=== PATIENT | female | born 1970 | race Caucasian/White ===

== ENCOUNTER 2017-03-27 08:08 | Emergency (ER) | payer BC ==
[~2017-03-27] VITALS: Ht 160 cm; Wt 66.9 kg
[~2017-03-27 08:08] MED LIST: ASPEC81 PO; ATOV1TAB PO; CETI10TA10 PO; ENOX60IN SQ; [UNRECOGNIZED DRUG - CODE] SQ
[2017-03-27 08:11] VITALS: TEMP 36.9; Ht 160 cm; Wt 66.9 kg
[2017-03-27] MEDS ORDERED: ASPI-232 PO (08:23)
[2017-03-27] MEDS ORDERED: SODIUM CHLORIDE 0.9% 1000ML 1,000 ML IV STA (08:23)
[2017-03-27] MEDS ORDERED: ENOX40IN SQ (08:23)
[2017-03-27] MEDS ORDERED: [UNRECOGNIZED DRUG - CODE] SQ (08:23)
[2017-03-27] MEDS ORDERED: OPTIRAY 320 IV PRN (08:30)
[2017-03-27 08:54] LABS: BASO % 0.5 %; BASO ABS # 0.03 K/uL (0-0.2); COMPLETE YES; EOS % 1.1 %; HEMATOCRIT 39.4 % (37-47); IG% 0.4 %; LYMPH % 38.4 %; LYMPH ABS # 2.17 K/uL (1.2-3.4); MEAN CELL VOLUME 88.7 fL (80-100); MEAN CORPUSCULAR HGB CONC 33.8 g/dl (32-36); MEAN PLATELET VOLUME 9.6 fL (7.4-10.4); MONO % 16.5 %; NEUT % 43.1 %; PLATELET COUNT 407 K/uL (130-400); RED BLOOD COUNT 4.44 M/uL (4.2-5.4); WHITE BLOOD COUNT 5.65 K/uL (4.8-10.8)
[2017-03-27 09:01] LABS: ISTAT CREATININE 0.7 mg/dl (0.6-1.3); ISTAT HEMOGLOBIN 14.3 g/dl (12.0-16.0); ISTAT IONIZED CALCIUM 1.14 mmol/l (1.12-1.32)
[2017-03-27 09:11] LABS: BLOOD UREA NITROGEN 13 mg/dl (7-18); BUN/CREATININE RATIO 16.9 (10-20); CALCIUM 8.6 mg/dl (8.5-10.1); CARBON DIOXIDE 25 mmol/L (21-32); CHLORIDE 107 mmol/L (98-107); CREATININE 0.74 mg/dl (0.60-1.20); GLUCOSE 80 mg/dl (70-99); POTASSIUM 3.9 mmol/L (3.5-5.1); SODIUM 138 mmol/L (136-145)
[2017-03-27 09:12] LABS: INR 0.9 (0.9-1.1); PROTHROMBIN TIME (PATIENT) 10.1 SECONDS (9.0-12.0)
[2017-03-27 09:14] LABS: ALKALINE PHOSPHATASE 57 U/L (45-117); ALT/SGPT 26 U/L (12-78); AST/SGOT 18 U/L (15-37)
--- NOTE | 2017-03-27 09:57 | DIAGNOSTIC IMAGING REPORT ---
CT ABD/PELVIS IV CONTRAST ONLY CLINICAL HISTORY: Left lower quadrant abdominal pain. History of prior splenectomy. History of hemorrhagic left ovarian cyst. COMPARISON STUDY: December 2012 TECHNIQUE: Following the IV administration of 93 mL of Optiray-320, CT scan of the abdomen and pelvis was performed from the lung bases to the proximal femurs. Images are reviewed in the axial, sagittal, and coronal planes. IV contrast was administered without complication. CT DOSE: 322.15 mGy.cm FINDINGS: Lower chest: The heart is normal in size and configuration, without pericardial effusion. The lung bases and pleural spaces are clear. Liver: There is stable left lobe atrophy. There is a 4 mm hypodensity within the right lobe of the liver, unchanged the prior study and likely representing a cyst. There are 2 stable subcentimeter left lobe hypodensities, also likely representing cysts. The largest measures 9 mm. Gallbladder: Unremarkable. Spleen: Surgically absent Pancreas: Unremarkable. Adrenal glands: Unremarkable. Kidneys: There is symmetric renal cortical enhancement. The kidneys are normal in size without hydronephrosis. Bowel: There are no transition zone to indicate bowel obstruction. There is no acute diverticulitis. There is no evidence of acute appendicitis. There is mild fecal retention. Peritoneum: No free air is visualized. There is trace free pelvic fluid likely physiologic. Vasculature: The abdominal aorta is normal in course and caliber. Adenopathy: None. Pelvic viscera: The uterus appears surgically absent. There is mild enlargement of the left ovarian complex ((5 cm) which contains multiple cysts/follicles. Skeletal structures: No destructive osseous lesions are seen. IMPRESSION: 1. No evidence of bowel obstruction. No evidence of free air 2. Mild fecal retention 3. No evidence of acute diverticulitis 4. Surgically absent spleen and uterus 5. Stable left hepatic lobe atrophy 6. Enlarged left ovarian complex measuring 5 cm. This contains multiple cysts/follicles. Electronically signed by: Vitor Nelson M.D. 03/27/2017 9:56 AM Dictated Date/Time: 03/27/2017 9:45 AM
[2017-03-27 10:17] LABS: URINE APPEARANCE CLEAR (CLEAR); URINE BILIRUBIN NEG (NEG); URINE COLOR YELLOW; URINE NITRITE NEG (NEG); URINE PH 6.5 (4.5-7.5); URINE SPECIFIC GRAVITY 1.013 (1.000-1.030); UROBILINOGEN NEG (NEG); ZZUR CULT IF INDIC CLEAN CATCH NO
[2017-03-27 10:25] LABS: MANUAL MICROSCOPIC REQUIRED? NO; REVIEW REQ? NO
--- NOTE | 2017-03-27 13:28 | DIAGNOSTIC IMAGING REPORT ---
EXAMINATION: PELVIC ULTRASOUND CLINICAL HISTORY: Left lower quadrant abdominal pain. Left ovarian cyst. COMPARISON STUDY: CT scan dated 03/27/2017, ultrasound dated 05/01/2014 FINDINGS: The uterus is surgically absent. The right ovary is surgically absent. The left ovary measured 50 x 19 x 35 mm. There are multiple complex left ovarian cysts, several which are likely hemorrhagic. The largest measures 17 mm.. There is no ultrasonographic evidence of ovarian torsion. It should be noted that ovarian torsion can be present with normal Doppler ultrasonographic findings. There was no evidence of pathologic free pelvic fluid. IMPRESSION: 1. Mildly enlarged left ovary containing multiple complex cysts, several which are likely hemorrhagic. 2. Surgically absent uterus and right ovary. Electronically signed by: Vitor Nelson M.D. 03/27/2017 1:26 PM Dictated Date/Time: 03/27/2017 1:24 PM
[2017-03-27] MEDS ORDERED: OXYC1TAB3 PO (14:09)
[2017-03-27 14:30] VITALS: BP 122/70; PULSE 72; O2SAT 98
--- NOTE | 2017-03-27 15:21 | EMERGENCY ROOM VISIT NOTE ---
History Report prepared by Andrey: Jean Marie Rico Under the Supervision of: Dr. Sridhar Peterson M.D. First contact with patient: 08:20 Chief Complaint: ABDOMINAL PAIN Stated Complaint: PAIN IN LOWER L SIDE OF ABDOMEN Nursing Triage Summary: Pt states she began having LLQ pain this am. Hx of bleeding ovarian cysts. Pt denies n/v/d and urinary symptoms. Hx: pt on blood thinner, spleen removed. History of Present Illness The patient is a 46 year old female who presents to the Emergency Room with complaints of intermittent left lower abdominal pain that started this morning. She rates her pain as a 6.5/10 in severity and reports that the pain radiates to her lower back, which she describes as an aching pain . She reports that she has a history of ovarian cysts and states that her current symptoms feel similar to her previous cysts. The patient reports that she had a history of bleeding cysts but denies any rupture. She states that she has a history of polycythemia, gastric varices, splenectomy, uterine cancer, and a hysterectomy. The patient states that during her hysterectomy, the surgeons left her left ovary since she cannot be put on hormone replacement therapy due to her extensive medical history. She reports that she currently takes Lovenox every 12 hours, which she has been taking for the last 5 years. The patient reports that her PCP is Dr. Mai of [facility]. The patient denies LOC, headache, fevers, chills, diaphoresis, visual changes, neck pain, chest pain, breathing difficulties, nausea, vomiting, melena, hematochezia, urinary symptoms, numbness , weakness, lymphadenopathy, rash, or other complaints. Source of History: patient Onset: this morning Position: abdomen (LLQ) Symptom Intensity: 6.5/10 Timing: intermittent Associated Symptoms: + back pain Review of Systems See HPI for pertinent positives and negatives. A total of ten systems were reviewed and were otherwise negative. Past Medical & Surgical Medical Problems: (1) Bleeding gastric varices (2) Fever (3) Polycythemia vera (4) Splenic vein thrombosis (5) Thrombocythemia Surgical Problems: (1) H/O splenectomy (2) H/O: hysterectomy Family History No significant family history Social History Smoking Status: Never Smoker Alcohol Use: none Drug Use: none Marital Status: Occupation Status: employed Current/Historical Medications Scheduled Aspirin (Aspir-81), 1 TAB PO DAILY Atovaquone-Proguanil Hcl (Atovaquone/Proguanil Hcl), 1 TAB PO DAILY Cetirizine Hcl (Zyrtec), 10 MG PO DAILY Enoxaparin (Lovenox), 0.4 ML SQ Q12 Peginterferon Dimitrios-2A (Pegasys), 90 MCG SQ WK Scheduled PRN Oxycodone Ir (Roxicodone Ir), 1-2 TAB PO Q4H PRN for Pain Allergies Coded Allergies: Amoxicillin (Verified Allergy, Intermediate, RASH, 03/27/17) Succinylcholine (Verified Allergy, Unknown, Family member hx of rxn, ) SHE WAS TESTED AND TOLD NOT TO TAKE IT SINCE HER SISTER QUIT BREATHING WHEN GIVEN IT. Hydroxyurea (Verified Adverse Reaction, Mild, GI SYMPTOMS, 03/27/17) felt lifeless Physical Exam Vital Signs Date Time Temp Pulse Resp B/P (MAP) Pulse Ox O2 Delivery O2 Flow Rate FiO2 03/27/17 14:30 72 18 122/70 98 03/27/17 11:50 77 16 104/74 97 03/27/17 11:48 86 18 03/27/17 11:43 79 13 03/27/17 11:38 74 16 03/27/17 11:33 76 13 03/27/17 11:28 76 10 03/27/17 11:23 84 13 03/27/17 11:18 82 12 03/27/17 11:13 82 19 03/27/17 11:08 83 20 03/27/17 11:03 79 17 03/27/17 10:58 81 13 03/27/17 10:43 89 21 03/27/17 10:38 84 22 03/27/17 10:33 73 14 03/27/17 10:28 86 18 03/27/17 10:23 82 13 03/27/17 10:18 78 14 03/27/17 10:13 80 18 03/27/17 10:08 70 13 03/27/17 10:05 75 03/27/17 10:03 79 15 03/27/17 09:58 79 14 03/27/17 09:48 109/68 03/27/17 09:48 75 14 109/68 99 Room Air 03/27/17 08:11 36.9 88 16 120/74 100 Room Air Physical Exam GENERAL: Awake, alert, well-appearing, in no distress HENT: Normocephalic, atraumatic. Oropharynx unremarkable. EYES: Normal conjunctiva. Sclera non-icteric. NECK: Supple. No nuchal rigidity. FROM. No JVD. RESPIRATORY: Clear to auscultation. CARDIAC: Regular rate, normal rhythm. Extremities warm and well perfused. Pulses equal. ABDOMEN: Soft, non-distended. Left lower quadrant tenderness to palpation. No rebound or guarding. No masses. RECTAL: Deferred. MUSCULOSKELETAL: Chest examination reveals no tenderness. The back is symmetrical on inspection without obvious abnormality. There is no CVA tenderness to palpation. No joint edema. LOWER EXTREMITIES: Calves are equal size bilaterally and non-tender. No edema. No discoloration. NEURO: Normal sensorium. No sensory or motor deficits noted. SKIN: No rash or jaundice noted. Medical Decision & Procedures ER Provider Diagnostic Interpretation: Radiology results as stated below per my review and radiologist interpretation: CT ABD/PELVIS IV CONTRAST ONLY CLINICAL HISTORY: Left lower quadrant abdominal pain. History of prior splenectomy. History of hemorrhagic left ovarian cyst. COMPARISON STUDY: December 2012 TECHNIQUE: Following the IV administration of 93 mL of Optiray-320, CT scan of the abdomen and pelvis was performed from the lung bases to the proximal femurs. Images are reviewed in the axial, sagittal, and coronal planes. IV contrast was administered without complication. CT DOSE: 322.15 mGy.cm FINDINGS: Lower chest: The heart is normal in size and configuration, without pericardial effusion. The lung bases and pleural spaces are clear. Liver: There is stable left lobe atrophy. There is a 4 mm hypodensity within the right lobe of the liver, unchanged the prior study and likely representing a cyst. There are 2 stable subcentimeter left lobe hypodensities, also likely representing cysts. The largest measures 9 mm. Gallbladder: Unremarkable. Spleen: Surgically absent Pancreas: Unremarkable. Adrenal glands: Unremarkable. Kidneys: There is symmetric renal cortical enhancement. The kidneys are normal in size without hydronephrosis. Bowel: There are no transition zone to indicate bowel obstruction. There is no acute diverticulitis. There is no evidence of acute appendicitis. There is mild fecal retention. Peritoneum: No free air is visualized. There is trace free pelvic fluid likely physiologic. Vasculature: The abdominal aorta is normal in course and caliber. Adenopathy: None. Pelvic viscera: The uterus appears surgically absent. There is mild enlargement of the left ovarian complex ((5 cm) which contains multiple cysts/follicles. Skeletal structures: No destructive osseous lesions are seen. IMPRESSION: 1. No evidence of bowel obstruction. No evidence of free air 2. Mild fecal retention 3. No evidence of acute diverticulitis 4. Surgically absent spleen and uterus 5. Stable left hepatic lobe atrophy 6. Enlarged left ovarian complex measuring 5 cm. This contains multiple cysts/follicles. Electronically signed by: Vitor Nelson M.D. 03/27/2017 9:56 AM Dictated Date/Time: 03/27/2017 9:45 AM EXAMINATION: PELVIC ULTRASOUND CLINICAL HISTORY: Left lower quadrant abdominal pain. Left ovarian cyst. COMPARISON STUDY: CT scan dated 03/27/2017, ultrasound dated 05/01/2014 FINDINGS: The uterus is surgically absent. The right ovary is surgically absent. The left ovary measured 50 x 19 x 35 mm. There are multiple complex left ovarian cysts, several which are likely hemorrhagic. The largest measures 17 mm.. There is no ultrasonographic evidence of ovarian torsion. It should be noted that ovarian torsion can be present with normal Doppler ultrasonographic findings. There was no evidence of pathologic free pelvic fluid. IMPRESSION: 1. Mildly enlarged left ovary containing multiple complex cysts, several which are likely hemorrhagic. 2. Surgically absent uterus and right ovary. Electronically signed by: Vitor Nelson M.D. 03/27/2017 1:26 PM Dictated Date/Time: 03/27/2017 1:24 PM Laboratory Results 03/27/17 08:35 Red Blood Count 4.44, Mean Corpuscular Volume 88.7, Mean Corpuscular Hemoglobin 30.0, Mean Corpuscular Hemoglobin Concent 33.8, Mean Platelet Volume 9.6, Neutrophils (%) (Auto) 43.1, Lymphocytes (%) (Auto) 38.4, Monocytes (%) (Auto) 16.5, Eosinophils (%) (Auto) 1.1, Basophils (%) (Auto) 0.5, Neutrophils # (Auto ) 2.44, Lymphocytes # (Auto) 2.17, Monocytes # (Auto) 0.93, Eosinophils # (Auto ) 0.06, Basophils # (Auto) 0.03 03/27/17 08:35 Test 03/27/17 08:35 03/27/17 08:42 03/27/17 09:30 White Blood Count 5.65 K/uL (4.8-10.8) Red Blood Count 4.44 M/uL (4.2-5.4) Hemoglobin 13.3 g/dL (12.0-16.0) Hematocrit 39.4 % (37-47) Mean Corpuscular Volume 88.7 fL (80-100) Mean Corpuscular Hemoglobin 30.0 pg (25-34) Mean Corpuscular Hemoglobin Concent 33.8 g/dl (32-36) Platelet Count 407 K/uL (130-400) Mean Platelet Volume 9.6 fL (7.4-10.4) Neutrophils (%) (Auto) 43.1 % Lymphocytes (%) (Auto) 38.4 % Monocytes (%) (Auto) 16.5 % Eosinophils (%) (Auto) 1.1 % Basophils (%) (Auto) 0.5 % Neutrophils # (Auto) 2.44 K/uL (1.4-6.5) Lymphocytes # (Auto) 2.17 K/uL (1.2-3.4) Monocytes # (Auto) 0.93 K/uL (0.11-0.59) Eosinophils # (Auto) 0.06 K/uL (0-0.5) Basophils # (Auto) 0.03 K/uL (0-0.2) RDW Standard Deviation 46.5 fL (36.4-46.3) RDW Coefficient of Variation 14.4 % (11.5-14.5) Immature Granulocyte % (Auto) 0.4 % Immature Granulocyte # (Auto) 0.02 K/uL (0.00-0.02) Prothrombin Time 10.1 SECONDS (9.0-12.0) Prothromb Time International Ratio 0.9 (0.9-1.1) Activated Partial Thromboplast Time 26.3 SECONDS (21.0-31.0) Partial Thromboplastin Ratio 1.0 Est Creatinine Clear Calc Drug Dose 89.1 ml/min Estimated GFR () 114.2 Estimated GFR (Non- 98.5 BUN/Creatinine Ratio 16.9 (10-20) Calcium Level 8.6 mg/dl (8.5-10.1) Total Bilirubin 0.5 mg/dl (0.2-1) Direct Bilirubin < 0.1 mg/dl (0-0.2) Aspartate Amino Transf (AST/SGOT) 18 U/L (15-37) Alanine Aminotransferase (ALT/SGPT) 26 U/L (12-78) Alkaline Phosphatase 57 U/L (45-117) Total Protein 8.1 gm/dl (6.4-8.2) Albumin 3.4 gm/dl (3.4-5.0) Lipase 135 U/L (73-393) Bedside Hemoglobin 14.3 g/dl (12.0-16.0) Bedside Hematocrit 42 % (37-47) Bedside Sodium 140 mEq/L (135-144) Bedside Potassium 4.0 mEq/L (3.3-5.0) Bedside Chloride 103 mEq/L (101-112) Bedside Total CO2 24 mEq/l (24-31) Anion Gap 18.0 mmol/L (16-25) Bedside Blood Urea Nitrogen 13 mg/dl (7-18) Bedside Creatinine 0.7 mg/dl (0.6-1.3) Bedside Glucose (other) 84 mg/dl (70-99) Bedside Ionized Calcium (Christian) 1.14 mmol/l (1.12-1.32) Urine Color YELLOW Urine Appearance CLEAR (CLEAR) Urine pH 6.5 (4.5-7.5) Urine Specific [place] 1.013 (1.000-1.030) Urine Protein NEG (NEG) Urine Glucose (UA) NEG (NEG) Urine Ketones NEG (NEG) Urine Occult Blood NEG (NEG) Urine Nitrite NEG (NEG) Urine Bilirubin NEG (NEG) Urine Urobilinogen NEG (NEG) Urine Leukocyte Esterase NEG (NEG) Laboratory results reviewed by me Medications Administered Medications (Trade) Dose Ordered Sig/Paul Route Start Time Stop Time Status Last Admin Dose Admin Sodium Chloride 1,000 ml @ 125 mls/hr Q8H STAT IV 03/27/17 08:23 03/27/17 14:52 DC 03/27/17 08:45 125 MLS/HR ED Course 0823: Sodium Chloride 1000 ml @ 125 mls/hr IV. 0824: The patient was evaluated in room B10. A complete history and physical exam was performed. 0956: I reevaluated the patient and she is resting comfortably. She does not want any pain medication and requested an ultrasound. 1335: I reevaluated the patient and she is resting comfortably. I updated her on her results and discussed a treatment plan. She would not like any pain medication in the hospital, but I discussed a prescription of pain medication for home. She agreed with the prescriptions and told me she has taken Oxycodone in the past for pain and had no issues with it. I told her to visit her [facility] for a follow up and to rest and relax. I also advised her to return if her symptoms worsen. The patient was discharged home. Medical Decision Triage Nursing notes reviewed. The patient's presentation and history were concerning for abdominal pain. Etiologies such as ovarian cyst, ovarian torsion, diverticulitis, obstruction , inflammatory bowel disease, renal colic, appendicitis, PUD, biliary pathology , pancreatitis, mesenteric ischemia, aortic pathology, infections, genitourinary , UTI, perforated viscus, as well as others were entertained. The patient was evaluated. She had tenderness in the left lower quadrant. She declined analgesia. She was hydrated. The patient had an unremarkable CBC and chemistry panel. Urinalysis was negative. The patient has a prior hysterectomy. The patient underwent CT imaging and this revealed no evidence of significant free fluid within the abdomen and pelvis, diverticulitis, or other infectious process. The patient did have a complex cystic appearance to the left ovary. She underwent ultrasound imaging which revealed findings consistent with a hemorrhagic ovarian cyst. There is no evidence of rupture. No clear evidence of torsion. The patient is comfortable and resting well. She required no analgesia. My suspicion for torsion is extremely low. I did discuss this with her Her significant other. I discussed conservative management with the patient. She was in agreement. A prescription was sent to her pharmacy for pain management. She will call and follow up with her primary [facility]. If she worsens in any way she will be back. By the evaluation outlined above other emergent etiologies such as those listed in the differential, as well as others, were deemed relatively unlikely. The patient was educated about the findings as listed above. All questions were answered and the patient was pleased with the treatment. Return instructions were outlined and the patient was discharged in stable condition. The patient was referred to her [facility] for follow-up for a recheck of the current condition. [place] Drug Monitoring Program Search Results: patient reviewed within database, no issues identified Impression Primary Impression: LLQ abdominal pain Additional Impression: Hemorrhagic ovarian cyst Scribe Attestation The scribe's documentation has been prepared under my direction and personally reviewed by me in its entirety. I confirm that the note above accurately reflects all work, treatment, procedures, and medical decision making performed by me. Departure Information Dispostion Home / Self-Care Prescriptions Oxycodone Ir (Roxicodone Ir) 5 Mg Tab 1-2 TAB PO Q4H Y for Pain, #15 TAB Prov: Sridhar Peterson MD 03/27/17 Referrals Enzo Vines M.D. (PCP) Forms Call Back Authorization, HOME CARE DOCUMENTATION FORM, IMPORTANT VISIT INFORMATION Patient Instructions My [facility] Additional Instructions ABDOMINAL PAIN INSTRUCTIONS: Oxycodone (OxyIR) 5mg: Take 1-2 pills every four hours for breakthrough pain. Avoid alcohol, operating machinery or dangerous equipment, working on ladders or roofs, DRIVING, or situations where being under the influence may be dangerous. It is recommended to use an gseu-rsh-ordeiuv stool softener such as Colace, 100mg twice daily while taking this medication to avoid constipation. Acetaminophen(Tylenol) may be used for fever or pain. Use 1000mg every six hours as needed. Avoid using more than 3000mg in a 24 hour period. Rest and drink plenty of fluids as tolerated. Slow sips of water or sports drinks are recommended instead of large amounts all at once. Continue current medications. Return to the ER immediately for worsening or persistent abdominal pain, vomiting, fevers, chest pains, difficulty breathing, black or bloody stools, worsening of your condition, or as needed. Follow up with your [facility] physician in 2-3 days for a recheck of your current condition. Problem Qualifiers
== END 2017-03-27 14:30 | disposition home or self-care (01) ==
LOC: C.EDB 08:10
DX: R10.32 Left lower quadrant pain (principal); N83.202 Unspecified ovarian cyst, left side; D45 Polycythemia vera; I86.4 Gastric varices; Z85.42 Personal history of malignant neoplasm of other parts of uterus; Z90.710 Acquired absence of both cervix and uterus; Z86.718 Personal history of other venous thrombosis and embolism; D47.3 Essential (hemorrhagic) thrombocythemia; Z79.82 Long term (current) use of aspirin

== ENCOUNTER → 2017-05-20 | Outpatient (CLI) | payer BC ==
[~2017-05-20] MED LIST changes: -ASPEC81 PO; +ASPI-232 PO; +ENOX40IN SQ; -ENOX60IN SQ; +OXYC1TAB3 PO
--- NOTE | 2017-05-21 13:48 | MAMMOGRAPHY REPORT ---
BILATERAL DIGITAL SCREENING MAMMOGRAM TOMOSYNTHESIS WITH CAD: 05/20/2017 CLINICAL HISTORY: Routine screening. TECHNIQUE: Breast tomosynthesis in addition to standard 2D mammography was performed. Current study was also evaluated with a Computer Aided Detection (CAD) system. COMPARISON: Comparison is made to exams dated: 05/16/2016 mammogram and 03/04/2011 mammogram - [facility]. BREAST COMPOSITION: There are scattered areas of fibroglandular density in both breasts. FINDINGS: The breast parenchymal pattern is similar to prior mammograms. No suspicious mass, carmela ectural distortion or cluster of microcalcifications is seen. IMPRESSION: ACR BI-RADS CATEGORY 1: NEGATIVE There is no mammographic evidence of malignancy. A 1 year screening mammogram is recommended. The pa tient will receive written notification of the results. Approximately 10% of breast cancers are not detected with mammography. A negative mammographic report should not delay biopsy if a clinically suggestive mass is present. Carrol Lagunas M.D. ay/:05/20/2017 16:55:33 Geophysical Engineer: Amber CHAVES(R)(M), [facility] letter sent: Normal 1/2 BI-RADS Code: ACR BI-RADS Category 1: Negative
== END | disposition home or self-care (01) ==
LOC: C.MAMM 10:38
PROVIDERS: ATTEND Obstetrics & Gynecology
DX: Z12.31 Encounter for screening mammogram for malignant neoplasm of breast (principal)

== ENCOUNTER → 2017-08-18 | Outpatient (CLI) | payer BC | END | disposition home or self-care (01) | LOC: C.PAPS 11:42 | PROVIDERS: ATTEND Obstetrics & Gynecology | DX: Z01.419 Encounter for gynecological examination (general) (routine) without abnormal findings (principal) ==